=== PATIENT | male | born 1980 | race Caucasian/White ===

== ENCOUNTER 2016-11-05 02:08 | Emergency (ER) | payer BC, OTHER ==
[~2016-11-05] VITALS: Ht 167.6 cm; Wt 72.6 kg
[2016-11-05 02:15] VITALS: BP 122/75
== END 2016-11-05 02:34 | disposition home or self-care (01) ==
LOC: ER 02:08
DX: J06.9 Acute upper respiratory infection, unspecified (principal)
CPT/HCPCS: 99281; A4606; Z7610; Z7502